=== PATIENT | male | born 1950 | race Caucasian/White ===

== ENCOUNTER 2019-08-21 14:26 | Emergency (ER) | payer SELFPAY ==
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
[2019-08-21] MEDS ORDERED: Morphine 4 MG/ML VIAL (1 ml) 4 MG/ML VIAL IV ONE (14:57)
[2019-08-21 15:13] LABS: Hematocrit 45 % (42-52); Hemoglobin 15.9 g/dL (14.0-18.0); Mean Corpuscular HGB Conc 35 g/dL (31-36); Mean Corpuscular Hemoglobin 32 pg (27-31); Mean Corpuscular Volume 90 fL (80-94); Mean Platelet Volume 8.1 fL (7.4-10.4); Platelet Count 253 10^3/uL (150-450); Red Blood Count 4.98 10^6 /uL (4.18-5.48); Red Cell Distribution Width 14 % (10-15)
[2019-08-21 15:32] LABS: Troponin I 0.01 ng/mL (<0.03)
[2019-08-21 15:45] LABS: Albumin 4.2 g/dL (3.2-5.2); Albumin/Globulin Ratio 1.5 (1-3); Calcium 9.6 mg/dL (8.6-10.3); Globulin 2.8 g/dL (2-4); Total Bilirubin 0.7 mg/dL (0.2-1.0)
[2019-08-21 15:52] LABS: ABS Basophils 0.2 10^3/ul (0-0.2); ABS Eosinophils 0.3 10^3/ul (0-0.6); ABS Lymphocytes 1.3 10^3/ul (1.0-4.8); ABS Monocytes 1.7 10^3/ul (0-0.8); ABS Neutrophils 23.4 10^3/ul (1.5-7.7); Eosinophil % 1.2 %; Lymphocyte % 4.9 %
[2019-08-21 16:10] LABS: BUN/Creatinine Ratio 20.5 (8-20); EGFR African American 78.7 (>60)
[2019-08-21] MEDS ORDERED: Iohexol 300* (CONTRAST) 10 ML SDV IV ONE (16:13)
[2019-08-21] MEDS ORDERED: HYDROcodone/ACETAMIN 5-325 MG* 1 TAB PO ONE (17:12)
[2019-08-21 17:20] LABS: Potassium 3.9 mmol/L (3.5-5.0)
[2019-08-21] MEDS ORDERED: Amoxicillin/Clavulanate TAB* 875 MG PO ONE (17:39)
[2019-08-21 17:46] VITALS: BP 119/57
== END 2019-08-21 17:50 | disposition home or self-care (01) ==
LOC: ED 14:26
DX: M54.9 Dorsalgia, unspecified (principal); J32.9 Chronic sinusitis, unspecified; D72.829 Elevated white blood cell count, unspecified; V48.5XXA Car driver injured in noncollision transport accident in traffic accident, initial encounter; Y92.410 Unspecified street and highway as the place of occurrence of the external cause; J44.9 Chronic obstructive pulmonary disease, unspecified; I10 Essential (primary) hypertension; I25.2 Old myocardial infarction; Z95.5 Presence of coronary angioplasty implant and graft; Z87.891 Personal history of nicotine dependence; Z79.01 Long term (current) use of anticoagulants
CPT/HCPCS: 36415; 70450; 71260; 74177; 80053; 84484; 85025; 93005; 96374; 99283; A9270-GY; J2270; Q9967